=== PATIENT | female | born 2000 | race Caucasian/White ===

== ENCOUNTER 2022-05-31 06:09 | Inpatient (IN) | payer BC ==
[~2022-05-31] VITALS: Ht 160 cm; Wt 49.9 kg
[2022-05-31 06:15] VITALS: BP_SYST 112
--- NOTE | 2022-05-31 06:19 | NUR ---
PATIENT BROUGHT TO ROOM 7, REPORT GIVEN TO EVELYN ANDREW. WAITING TO BE SEEN. PER PATIENT, STARTED VOMITING WITH DIARRHEA AND NAUSEA AND ABDOMINAL PAIN SINCE 399.
--- NOTE | 2022-05-31 06:27 | NUR ---
PT IS AA&OX4. NAD, AFEBRILE. C/O 05/14 ABD PAIN, N/V, DIARRHEA, DIZZINESS. NO PMH, NO ALLERGIES. PER PT, SHE IS CURRENTLY ON HER PERIOD RIGHT NOW. 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 VSS. AMBULATORY.SAFE & HAZARD FREE ENVIRONMENT PROVIDED.
[2022-05-31] MEDS ORDERED: ONDANSETRON 4 MG ODT TAB PO ONE (06:30)
[2022-05-31] MEDS ORDERED: MAG HYDROX/AL HYDROX/SIMETH 30 ML, DICYCLOMINE HCL 20 MG, LIDOCAINE VISCOUS 2% 15ML (PO... PO ONE ×3 (06:30)
[2022-05-31] MEDS ORDERED: KETOROLAC TROMETHAMINE 30 MG VIAL IM ONE (06:30)
--- NOTE | 2022-05-31 06:31 | NUR ---
ER at bedside examining patient.
[2022-05-31] MEDS ORDERED: KETOROLAC TROMETHAMINE 30 MG VIAL ONE (06:39)
[2022-05-31] MEDS ORDERED: ONDANSETRON 4 MG ODT TAB ONE (06:39)
[2022-05-31 07:01] LABS: BASOPHILS # (AUTO) 0.1 K/uL (0.0-0.2); BASOPHILS % (AUTO) 0.3 % (0.0-2.0); EOSINOPHILS % (AUTO) 0.1 % (0.0-4.0); HEMATOCRIT 31.3 % (36-48); LYMPHOCYTES # (AUTO) 2.5 K/uL (1.0-5.5); LYMPHOCYTES % (AUTO) 11.7 % (20.5-51.5); MEAN CORPUSCULAR VOLUME 82 fL (79.0-98.0); MONOCYTES # (AUTO) 0.8 K/uL (0.0-1.0); MONOCYTES % (AUTO) 3.8 % (1.7-9.3); NEUTROPHILS # (AUTO) 18.2 K/uL (1.8-7.7); NEUTROPHILS % (AUTO) 84.1 % (40.0-70.0); PLATELET COUNT (AUTO) 438 K/uL (130-430); RED BLOOD CELL COUNT(AUTO) 3.82 MIL/uL (4.2-6.2); RED CELL DISTRIBUTION WIDTH 16.6 % (9.0-15.0); WHITE BLOOD COUNT (AUTO) 21.7 K/uL (4.5-11.0)
[2022-05-31 07:05] LABS: CALCIUM 9.5 mg/dL (8.4-11.0); CREATININE 1.16 mg/dL (0.55-1.30)
[2022-05-31 07:10] LABS: ALBUMIN 4.3 g/dL (3.4-4.8); TOTAL BILIRUBIN 0.8 mg/dL (0.0-1.0)
--- NOTE | 2022-05-31 07:12 | NUR ---
REPORT GIVEN TO EVELYN SANTAMARIA
[2022-05-31] MEDS ORDERED: ONDANSETRON HCL 4 MG/2 ML VIAL IVP ONE (07:30)
[2022-05-31] MEDS ORDERED: NACL 0.9% 2,000 ML IV ONE (07:30)
[2022-05-31 07:38] LABS: POTASSIUM 2.7 mmol/L (3.5-5.1)
--- NOTE | 2022-05-31 07:43 | NUR ---
PT REPORTS NAUSEA/VOMITTING. DR LO INFORMED, MEDICATED ORDERED.
[2022-05-31] MEDS ORDERED: KCL 40 mEq in 100 mL (PREMIX) 100 ML IV ONE (08:00)
[2022-05-31 08:21] LABS: PHOSPHORUS 1.7 mg/dL (2.7-4.5)
--- NOTE | 2022-05-31 08:28 | NUR ---
PT TO CT SCAN
[2022-05-31] MEDS ORDERED: KCL 20 mEq in 100 mL (PREMIX) 100 ML IV ONE (08:30)
[2022-05-31] MEDS ORDERED: NA PHOS 30 MM in NS 250 ML IV ONE (09:00)
[2022-05-31] MEDS ORDERED: LORazepam 2 MG/ML VIAL IVP ONE (09:00)
[2022-05-31 09:06] LABS: BILIRUBIN,URINE NEGATIVE (NEGATIVE); BLOOD, URINE NEGATIVE (NEGATIVE); CLARITY/URINE CLEAR (CLEAR); COLOR,URINE YELLOW (YELLOW); GLUCOSE,URINE 2+ (NEGATIVE); KETONES,URINE 3+ (NEGATIVE); LEUKOCYTE ESTERASE ,URINE NEGATIVE (NEGATIVE); NITRITE, URINE NEGATIVE (NEGATIVE); PROTEIN URINE NEGATIVE (NEGATIVE); UROBILINOGEN,URINE 0.2 (0.2-1.0)
[2022-05-31 09:27] LABS: RBC,URINE 0-3 /HPF (0-3); WBC,URINE 0-3 /HPF (0-3)
[2022-05-31 09:28] LABS: BACTERIA,URINE None Seen /HPF (None Seen)
[2022-05-31] MEDS ORDERED: VANCOMYCIN HCL 1,000 MG in NS 250 ML IV ONE (10:00)
[2022-05-31] MEDS ORDERED: PIPERACILLIN/TAZO 3.375 GM in NS 50 ML IV ONE (10:00)
[2022-05-31] MEDS ORDERED: PIPERACILLIN/TAZOBACTAM 3.375 GM/VIAL (ZOSYN) IV ONE (10:05)
--- NOTE | 2022-05-31 10:19 | NUR ---
PLAN OF CARE INFORMED, PT VERBALIZED UNDERSTANDING. ROMMATE AT BEDSIDE. IV FLUIDS AND POTASSIUM INFUSING WELL ORDERED VIA PUMP. PT ON TELE MONITOR. DENIES ANY PALPITATIONS OR CHEST DISCOMFORT.
[2022-05-31] MEDS ORDERED: PANTOPRAZOLE SODIUM 40 MG/VIAL (PROTONIX) IVP ONE ×2 (10:30→22:30)
[2022-05-31] MEDS ORDERED: NACL 0.9% 1,000 ML IV ONE (10:30)
[2022-05-31] MEDS ORDERED: VANCOMYCIN HCL 1000 MG/VIAL IV ONE (11:00)
[2022-05-31 11:01] LABS: BARBITURATE, URINE NEGATIVE (NEG <=200); BENZODIAZEPINE, URINE NEGATIVE (NEG <=150); CANNABINOID, URINE POSITIVE (NEG <=50); COCAINE, URINE NEGATIVE (NEG <=150); METHAMPHETAMINES SCREEN,URINE NEGATIVE (NEG <=500); OPIATE, URINE NEGATIVE (NEG <=100); PHENCYCLIDINE SCREEN,URINE NEGATIVE (NEG <=25); UR TRICYCLIC ANTIDEPRESSANTS NEGATIVE (NEG <=300); URINE AMPHETAMINE NEGATIVE (NEG <=500); URINE METHADONE NEGATIVE (NEG <=200); URINE OXYCODONE SCREEN NEGATIVE (NEG <=100); URINE PROPOXYPHENE SCREEN NEGATIVE (NEG <=300)
--- NOTE | 2022-05-31 11:47 | NUR ---
REPORT GIVEN TO MIREYA RIVAS
[2022-05-31] MEDS: ONDANSETRON HCL 4 MG/2 ML VIAL IVP PRN ×3 (12:11→21:11)
--- NOTE | 2022-05-31 13:50 | NUR ---
Dr Jeong evaluating patient at bedside
[2022-05-31] MEDS ORDERED: INSULIN REGULAR, HUMAN 100 UNITS/ML, 3 ML VIAL (humuLIN R) SUBCUT PRN (14:00)
[2022-05-31] MEDS ORDERED: DEXTROSE 50% JECT 50 ML DISP.SYRIN IVP PRN (14:00)
--- NOTE | 2022-05-31 14:37 | NUR ---
LAB DRAWING BLOOD AT BEDSIDE
--- NOTE | 2022-05-31 14:45 | NUR ---
Admit bed requested Patient will be admitted to care of Dr Jeong.. Admitted to Tele unit. Diagnosis Sepsis Inpatient (Yes or No) Yes Observation (Yes or No) No Orientation concerns or request close to nursing station (Yes or No) No Covid Status Negative On vent or bipap No Isolation requirements No Needs a sitter No From Home (Yes or if No enter name of facility) Yes Requires Dialysis (Yes or No) No Med Rec Completed (Yes of No) Yes
[2022-05-31] MEDS ORDERED: ESCI20TA PO (15:42)
--- NOTE | 2022-05-31 15:42 | NUR ---
Medication reconciliation completed with information provided by patient . Any prior medication reconciliation on file was reviewed and corrected.
[2022-05-31 16:00] VITALS: BP_SYST 132
--- NOTE | 2022-05-31 16:05 | NUR ---
Patient will be admitted to care of DR VELAZQUEZ. Admitted to unit. Will go to room . Belongings list completed. Complete and up to date summary report printed. SBAR report to be given at bedside with opportunity for questions.
[2022-05-31] MEDS ORDERED: POTASSIUM CHLORIDE 40 MEQ in 0.45% NS 250 ML IV ONE (16:30)
[2022-05-31] MEDS: cefTRIAXone 1 GM in D5W 50 ML IV SCH (16:50)
[2022-05-31] MEDS: NACL 0.9% 1,000 ML IV SCH (17:08)
[2022-05-31] MEDS: LACTOBACILLUS RHAMNOSUS GG 1 CAP CAPSULE PO SCH ×2 (21:00→21:35)
[2022-05-31] MEDS: POTASSIUM CHLORIDE 20 MEQ TAB.PRT.SR PO SCH ×2 (21:00→21:35)
--- NOTE | 2022-05-31 22:25 | NUR ---
PAGED DR. VELAZQUEZ SPOKE TO SARAH DELGADO
[2022-05-31] MEDS ORDERED: MAG-AL HYDROX/SIMETH 30 ML UDC PO ONE (22:30)
[2022-05-31] MEDS ORDERED: MAG-AL HYDROX/SIMETH 30 ML UDC PO PRN (22:30)
[2022-05-31] MEDS ORDERED: METOCLOPRAMIDE HCL 10 MG/2 ML VIAL IVP ONE (22:30)
[2022-05-31] MEDS ORDERED: PANTOPRAZOLE SODIUM 40 MG/VIAL (PROTONIX) ONE (22:55)
[2022-05-31] MEDS: METOCLOPRAMIDE HCL 10 MG/2 ML VIAL IVP PRN (23:00)
[2022-06-01] VITALS: BP_SYST 105; BP_SYST 109
[2022-06-01] MEDS: NACL 0.9% 1,000 ML IV SCH ×3 (00:15→14:52)
--- NOTE | 2022-06-01 06:00 | NUR ---
--PT CONT. TO BE A/OX4. VS HAVE BEEN STABLE. 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 PT'S MOTHER HAS BEEN AT BEDSIDE DURING THE NIGHT(APPROVED BY [employer]). PT HAS BEEN HAVING FREQ EPISODES OF N/V WITH [facility]. CONTACTED LAST NIGHT AND INFORMED OF PT'S N/V. PT MED WITH PROTONIX 40MG IVP, REGLAN 10MG IVP AND MYLANTA 60CC(PT ONLY APPROX 1/3 OF AND HAD N/V AFTER DRINKING THE MED). PT STATES RELIEF AFTER RECEIVING THE MEDS. LATER IN THE SHIFT PT AWAKEN C/O N/V AGAIN. PT MED WITH REGLAN 10MG IVP THIS MORNING(SEE EMAR). PT HAS BEEN VOIDING WELL VIA BR AND OR BEDPAN. NEW IV STARTED VIA LEFT FA-20G. IV IN RIGHT ARM D/CD(IV WAS LEAKING AND BECAME UNCOMFORTABLE. PT ENDORSED TO EVELYN SHELL IN STABLE BUT GUARDED COND. ETHEL RIVAS
[2022-06-01] MEDS: METOCLOPRAMIDE HCL 10 MG/2 ML VIAL IVP PRN ×2 (07:03→14:46)
[2022-06-01 07:30] VITALS: BP_SYST 137
--- NOTE | 2022-06-01 07:30 | NUR ---
OPEN NOTE Received report from nightshift nurse. Patient is laying in bed resting with mother at bedside. Patient A/O x 4, amharic speaking. Per patient at this time no pain, no sob, no distress. Stated she has been throwing up all night RN gagjoan toth at 7am. Will page MD for prn pain medication for headach. IV to LAC 20 g patent on infusion pump and LAC 20g on SL. Patient on Room air saturations at 97%. All needs met at this time. Safety checks in place, bed is locked in lowest position, will continue to monitor.
[2022-06-01] MEDS ORDERED: ACETAMINOPHEN 650 MG SUPP.RECT RC PRN (08:15)
[2022-06-01] MEDS: PANTOPRAZOLE SODIUM 40 MG/VIAL (PROTONIX) IVP SCH ×2 (08:38→23:42)
[2022-06-01 08:39] LABS: ALBUMIN 3.1 g/dL (3.4-4.8); CALCIUM 7.9 mg/dL (8.4-11.0); CREATININE 0.71 mg/dL (0.55-1.30); POTASSIUM 3.7 mmol/L (3.5-5.1); TOTAL BILIRUBIN 0.9 mg/dL (0.0-1.0)
[2022-06-01 08:54] LABS: BASOPHILS % (AUTO) 0.1 % (0.0-2.0); HEMATOCRIT 26.5 % (36-48); LYMPHOCYTES # (AUTO) 1.4 K/uL (1.0-5.5); LYMPHOCYTES % (AUTO) 6.7 % (20.5-51.5); MEAN CORPUSCULAR VOLUME 82 fL (79.0-98.0); MONOCYTES # (AUTO) 1.1 K/uL (0.0-1.0); MONOCYTES % (AUTO) 4.9 % (1.7-9.3); NEUTROPHILS # (AUTO) 19.1 K/uL (1.8-7.7); NEUTROPHILS % (AUTO) 88.3 % (40.0-70.0); PLATELET COUNT (AUTO) 277 K/uL (130-430); RED BLOOD CELL COUNT(AUTO) 3.24 MIL/uL (4.2-6.2); RED CELL DISTRIBUTION WIDTH 16.6 % (9.0-15.0); WHITE BLOOD COUNT (AUTO) 21.6 K/uL (4.5-11.0)
[2022-06-01] MEDS: LACTOBACILLUS RHAMNOSUS GG 1 CAP CAPSULE PO SCH ×2 (09:00→21:00)
[2022-06-01] MEDS ORDERED: ONDANSETRON HCL 4 MG/2 ML VIAL IVP PRN (10:45)
--- NOTE | 2022-06-01 10:56 | NUR ---
CONSULTATION PAGED/CALLED Reason for Consultation: intractable vomiting Person Who was Notified: felipe Consulting Physician: daniel triana Ordering Physician: sally loya
[2022-06-01] MEDS ORDERED: MAG-AL HYDROX/SIMETH 30 ML UDC PO ONE (11:00)
--- NOTE | 2022-06-01 11:06 | NUR ---
CONSULTATION PAGED/CALLED Reason for Consultation: sepsis Person Who was Notified: scottie Consulting Physician: monique ritchie Ordering Physician: sally loya
--- NOTE | 2022-06-01 11:08 | NUR ---
CONSULTATION PAGED/CALLED Reason for Consultation: intractable vomiting Person Who was Notified: felipe Consulting Physician: daniel triana Ordering Physician: sally loya
[2022-06-01 12:00] VITALS: BP_SYST 148
[2022-06-01] MEDS ORDERED: DIPHENHYDRAMINE INJ 50 MG/ML VIAL IVP SCH (12:00)
--- NOTE | 2022-06-01 12:00 | NUR ---
PATIENT ROUNDS Patient is laying in bed resting with mother at bedside. No pain, no sob, no distress. All needs met at this time. Safety checks in place, bed is locked in lowest position, will continue to monitor.
[2022-06-01] MEDS: MAG-AL HYDROX/SIMETH 30 ML UDC PO SCH ×3 (13:00→21:00)
[2022-06-01 13:05] LABS: TOTAL IRON BIND. CAPACITY 311 ug/dL (250-450)
--- NOTE | 2022-06-01 14:00 | NUR ---
Patient communication Patient stated she wants to go home. I educated her on the pros and cons of signing AMA. Patient and her mother decided it would be best to wait for MD to see results and continue Rocephin IV antibiotic until MD discharges her.
[2022-06-01 16:00] VITALS: BP_SYST 129
--- NOTE | 2022-06-01 17:09 | NUR ---
LAB: Stool Sample Received call from lab that stool sample is not enough. I will have patient recollect next time they have BM.
[2022-06-01] MEDS: cefTRIAXone 1 GM in D5W 50 ML IV SCH (17:35)
[2022-06-01] MEDS: DIPHENHYDRAMINE INJ 50 MG/ML VIAL IM SCH ×2 (17:36→23:33)
--- NOTE | 2022-06-01 18:36 | NUR ---
CLOSING NOTE Patient is laying in bed resting with friend at bedside. Patient A/O x 4, Slovenian speaking. Per patient at this time no pain, no sob, no distress. IV to LAC 20 g patent on infusion pump and LAC 20g on SL. Patient on Room air saturations at 97%. All needs met at this time. Safety checks in place, bed is locked in lowest position, will endorse to mechanical engineering officer nurse.
[2022-06-02] MEDS: DIPHENHYDRAMINE INJ 50 MG/ML VIAL IM SCH ×2 (06:00→11:25)
[2022-06-02 07:05] LABS: BASOPHILS % (AUTO) 0.1 % (0.0-2.0); EOSINOPHILS % (AUTO) 0.1 % (0.0-4.0); LYMPHOCYTES # (AUTO) 2.2 K/uL (1.0-5.5); LYMPHOCYTES % (AUTO) 21.3 % (20.5-51.5); MEAN CORPUSCULAR VOLUME 83 fL (79.0-98.0); MONOCYTES # (AUTO) 0.8 K/uL (0.0-1.0); MONOCYTES % (AUTO) 7.4 % (1.7-9.3); NEUTROPHILS # (AUTO) 7.2 K/uL (1.8-7.7); NEUTROPHILS % (AUTO) 71.1 % (40.0-70.0); PLATELET COUNT (AUTO) 240 K/uL (130-430); RED BLOOD CELL COUNT(AUTO) 3.14 MIL/uL (4.2-6.2); RED CELL DISTRIBUTION WIDTH 16.3 % (9.0-15.0); WHITE BLOOD COUNT (AUTO) 10.2 K/uL (4.5-11.0)
[2022-06-02 07:21] LABS: CALCIUM 8.4 mg/dL (8.4-11.0); CREATININE 0.83 mg/dL (0.55-1.30); POTASSIUM 3.7 mmol/L (3.5-5.1); TOTAL BILIRUBIN 0.8 mg/dL (0.0-1.0)
[2022-06-02] MEDS: NACL 0.9% 1,000 ML IV SCH (07:21)
[2022-06-02 07:45] VITALS: BP_SYST 111
--- NOTE | 2022-06-02 07:45 | NUR ---
OPEN NOTE Received report from nightshift nurse. Patient is laying in bed resting with mother at bedside. Patient A/O x 4, Australian speaking. Per patient at this time no pain, no sob, no distress. Stated she has not felt nauseated since 1400 of 06/01/2022. IV to LAC 20 g patent on infusion pump and LAC 20g on SL. Patient on Room air saturations at 97%. All needs met at this time. Safety checks in place, bed is locked in lowest position, will continue to monitor.
[2022-06-02] MEDS: MAG-AL HYDROX/SIMETH 30 ML UDC PO SCH (09:00)
[2022-06-02] MEDS: LACTOBACILLUS RHAMNOSUS GG 1 CAP CAPSULE PO SCH (09:00)
[2022-06-02 10:06] LABS: FOLATE (FOLIC ACID) 6.3 ng/mL (>3.0)
[2022-06-02] MEDS: PANTOPRAZOLE SODIUM 40 MG/VIAL (PROTONIX) IVP SCH (10:20)
[2022-06-02 11:45] VITALS: BP_SYST 108
[2022-06-02 11:59] LABS: ERYTHROCYTE SEDIMENTATION RATE 9 MM/HR (0-20)
--- NOTE | 2022-06-02 12:05 | NUR ---
Patient rounds MD Jeong went to see patient at bedside and he stated that patient will discharge today. I informed patient once MD finalizes orders I will bring paperwork and get her ready to go out. No pain, no sob, no nausea or distress noted. All needs met at this time, safety checks in place. Will continue to monitor.
[2022-06-02] MEDS ORDERED: FAMO20TA8 PO (13:03)
[2022-06-02] MEDS ORDERED: ONDA-8 TL (13:03)
[2022-06-02 13:10] VITALS: BP_SYST 108
--- NOTE | 2022-06-02 13:40 | NUR ---
D/C Patient Patient given medication reconciliation form and D/C instructions. Exit Care provided. Patient verbalized understanding. MD Jeong discussed with patient the results and treatment provided. Ambulatory with steady gait for discharge to home. Patient in stable condition, ID band removed. IV catheter removed, intact and dressing applied, no active bleeding. Rx of given. Patient educated on pain management. All belongings sent with patient.
--- NOTE | 2022-06-03 08:21 | NUR ---
Dispo code 01
== END 2022-06-02 13:40 | disposition home or self-care (01) | DRG 872 ==
LOC: SED 06:09 → STU 10:21
PROVIDERS: ADMIT Internal Medicine; ATTEND Internal Medicine
DX: A41.9 Sepsis, unspecified organism (principal); E44.0 Moderate protein-calorie malnutrition; Z68.1 Body mass index [BMI] 19.9 or less, adult; K52.9 Noninfective gastroenteritis and colitis, unspecified; F32.A Depression, unspecified; Z20.822 Contact with and (suspected) exposure to COVID-19; R73.9 Hyperglycemia, unspecified; E87.6 Hypokalemia; F12.10 Cannabis abuse, uncomplicated; R11.10 Vomiting, unspecified; L70.9 Acne, unspecified; Z88.8 Allergy status to other drugs, medicaments and biological substances; Z56.0 Unemployment, unspecified
CPT/HCPCS: 36415; 70551; 71045; 76376; 80053; 80307; 81000; 82009; 82272; 82607; 82746; 82962; 83036; 83540; 83550; 83605; 83690; 83735; 84100; 84702; 85025; 85651-TC; 86140; 87040; 87045-TC; 87086; 89055; 93005; 96365; 96367; 96372; 96375; 99285; C9113; G0378; J0696; J1200; J1815; J1885; J2001; J2060; J2405; J2543; J2765; J3370; J3480; J7050; J7060; Q0162; Q9967